=== PATIENT | female | born 1985 | race Caucasian/White ===

== ENCOUNTER 2024-06-30 23:37 | Emergency (ER) | payer SELFPAY ==
[2024-07-01 00:14] LABS: BASOPHILS ABSOLUTE AUTO 0.08 K/uL (0.00-0.20); BASOPHILS PERCENT AUTO 0.7 % (0.0-1.0); EOSINOPHILS ABSOLUTE AUTO 0.21 K/uL (0.00-0.45); EOSINOPHILS PERCENT AUTO 1.9 % (0.0-6.0); HEMATOCRIT 47.7 % (37.0-47.0); HEMOGLOBIN 15.9 g/dL (12.0-16.0); IMMATURE GRAN ABSOLUTE AUTO 0.03 K/uL (0.00-0.05); IMMATURE GRAN PERCENT AUTO 0.3 % (0.0-0.4); LYMPHOCYTES ABSOLUTE AUTO 3.71 K/uL (1.00-4.80); LYMPHOCYTES PERCENT AUTO 34.4 % (24.0-44.0); MEAN CORPUSCULAR HEMOGLOBIN 28.4 pg (28.0-32.0); MEAN CORPUSCULAR HGB CONC 33.3 g/dL (32.0-36.0); MEAN CORPUSCULAR VOLUME 85.3 fL (83.0-99.0); MEAN PLATELET VOLUME 10.3 fL (9.4-12.3); MONOCYTES ABSOLUTE AUTO 0.71 K/uL (0.00-0.80); MONOCYTES PERCENT AUTO 6.6 % (0.0-8.0); NEUTROPHILS ABSOLUTE AUTO 6.04 K/uL (1.80-7.70); NEUTROPHILS PERCENT AUTO 56.1 % (41.0-71.0); PLATELET COUNT,PLT 225 K/uL (150-400); RED BLOOD CELL COUNT 5.59 M/uL (4.10-5.30); WHITE BLOOD CELL COUNT,WBC 10.78 K/uL (3.9-11.3)
[2024-07-01 00:28] LABS: APPEARANCE,URINE CLEAR; BILIRUBIN,URINE NEGATIVE (NEGATIVE); COLOR,URINE YELLOW; GLUCOSE,URINE NEGATIVE (NEGATIVE); KETONES,URINE NEGATIVE (NEGATIVE); LEUKOCYTE ESTERASE,URINE NEGATIVE (NEGATIVE); NITRITE,URINE NEGATIVE (NEGATIVE); OCCULT BLOOD,URINE MODERATE (NEGATIVE); PROTEIN,URINE NEGATIVE (NEGATIVE); UROBILINOGEN,URINE 0.2 EU/dL (<2.0)
[2024-07-01 00:38] LABS: BACTERIA,URINE FEW (NEGATIVE); EPITHELIAL CELLS,URINE MODERATE (NONE-FEW); RBC,URINE 0-1 (0-2/HPF); WBC,URINE 0-2 (0-5/HPF)
[2024-07-01 01:33] LABS: A/G RATIO 1.1 (0.9-1.6); BILIRUBIN TOTAL 0.4 mg/dL (0.2-1.0); CALCIUM 9.2 mg/dL (8.5-10.1); CARBON DIOXIDE,CO2 26.3 mmol/L (21.0-32.0); CREATININE 0.6 mg/dL (0.6-1.0); EST CRCL DRUG DOSING (CG) 108.7 mL/min; POTASSIUM,K 4.2 mmol/L (3.5-5.1); PROTEIN TOTAL,TP 7.6 g/dL (6.4-8.2)
== END 2024-07-01 01:13 | disposition home or self-care (01) ==
LOC: MW.ED 23:37
DX: O20.9 Hemorrhage in early pregnancy, unspecified (principal); O99.331 Smoking (tobacco) complicating pregnancy, first trimester; F17.210 Nicotine dependence, cigarettes, uncomplicated; Z79.899 Other long term (current) drug therapy; Z3A.08 8 weeks gestation of pregnancy; Z75.8 Other problems related to medical facilities and other health care
CPT/HCPCS: 36415; 76801; 76801-26; 80053; 81001; 84702; 85025; 86900; 86901; 99284

== ENCOUNTER 2024-07-01 14:32 | Emergency (ER) | payer SELFPAY ==
[2024-07-01 15:02] LABS: BASOPHILS ABSOLUTE AUTO 0.05 K/uL (0.00-0.20); BASOPHILS PERCENT AUTO 0.6 % (0.0-1.0); EOSINOPHILS ABSOLUTE AUTO 0.16 K/uL (0.00-0.45); EOSINOPHILS PERCENT AUTO 1.9 % (0.0-6.0); HEMATOCRIT 45.5 % (37.0-47.0); HEMOGLOBIN 15.3 g/dL (12.0-16.0); IMMATURE GRAN ABSOLUTE AUTO 0.03 K/uL (0.00-0.05); IMMATURE GRAN PERCENT AUTO 0.4 % (0.0-0.4); LYMPHOCYTES ABSOLUTE AUTO 2.63 K/uL (1.00-4.80); LYMPHOCYTES PERCENT AUTO 31.6 % (24.0-44.0); MEAN CORPUSCULAR HEMOGLOBIN 28.6 pg (28.0-32.0); MEAN CORPUSCULAR HGB CONC 33.6 g/dL (32.0-36.0); MEAN PLATELET VOLUME 10.1 fL (9.4-12.3); MONOCYTES ABSOLUTE AUTO 0.49 K/uL (0.00-0.80); MONOCYTES PERCENT AUTO 5.9 % (0.0-8.0); NEUTROPHILS ABSOLUTE AUTO 4.96 K/uL (1.80-7.70); NEUTROPHILS PERCENT AUTO 59.6 % (41.0-71.0); PLATELET COUNT,PLT 226 K/uL (150-400); RED BLOOD CELL COUNT 5.35 M/uL (4.10-5.30); WHITE BLOOD CELL COUNT,WBC 8.32 K/uL (3.9-11.3)
== END 2024-07-01 16:11 | disposition home or self-care (01) ==
LOC: MW.ED 14:32
DX: O03.9 Complete or unspecified spontaneous abortion without complication (principal); Z75.8 Other problems related to medical facilities and other health care
CPT/HCPCS: 36415; 84702; 85025; 99284

== ENCOUNTER 2024-07-02 22:33 | Emergency (ER) | payer SELFPAY ==
[2024-07-02] MEDS ORDERED: Sodium Chloride 0.9% 10 ML Syringe FLUSH PRN (22:49)
[2024-07-02 23:02] LABS: HEMATOCRIT 44.8 % (37.0-47.0); HEMOGLOBIN 15.2 g/dL (12.0-16.0); MEAN CORPUSCULAR HEMOGLOBIN 28.3 pg (28.0-32.0); MEAN CORPUSCULAR HGB CONC 33.9 g/dL (32.0-36.0); MEAN CORPUSCULAR VOLUME 83.4 fL (83.0-99.0); MEAN PLATELET VOLUME 10.1 fL (9.4-12.3); PLATELET COUNT,PLT 266 K/uL (150-400); RED BLOOD CELL COUNT 5.37 M/uL (4.10-5.30); WHITE BLOOD CELL COUNT,WBC 15.89 K/uL (3.9-11.3)
[2024-07-02] MEDS: Ondansetron 4 MG/2 ML SDV IVPUSH ONE (23:03)
[2024-07-02] MEDS: Morphine 4 MG/ML Syringe IVPUSH ONE (23:05)
[2024-07-02 23:06] LABS: EOSINOPHILS ABSOLUTE MAN 0.16 K/uL (0.00-0.45); EOSINOPHILS PERCENT MAN 1 % (0-6); LYMPHOCYTES ABSOLUTE MAN 5.88 K/uL (1.00-4.80); LYMPHOCYTES PERCENT MAN 37 % (24-44); MONOCYTES ABSOLUTE MAN 1.11 K/uL (0.00-0.80); MONOCYTES PERCENT MAN 7 % (0-8); SEG NEUTROPHILS ABSOLUTE MAN 8.74 K/uL (1.80-7.70); SEG NEUTROPHILS PERCENT MAN 55 % (41-71)
[2024-07-02] MEDS: Morphine 2 MG/ML SYRINGE IVPUSH ONE (23:06)
[2024-07-02] MEDS: Sodium Chloride 0.9% 1,000 ML IV ONE (23:25)
[2024-07-02 23:49] LABS: A/G RATIO 1.2 (0.9-1.6); ALBUMIN 3.9 g/dL (3.4-5.0); BILIRUBIN TOTAL 0.5 mg/dL (0.2-1.0); CALCIUM 9.3 mg/dL (8.5-10.1); CARBON DIOXIDE,CO2 26.4 mmol/L (21.0-32.0); CREATININE 0.8 mg/dL (0.6-1.0); EST CRCL DRUG DOSING (CG) 88.87 mL/min; POTASSIUM,K 3.3 mmol/L (3.5-5.1); PROTEIN TOTAL,TP 7.1 g/dL (6.4-8.2)
[2024-07-03] MEDS: Acetaminophen 500 MG Tab PO ONE (00:43)
[2024-07-03] MEDS: Ketorolac 30 MG/ML SDV IVPUSH ONE (00:43)
== END 2024-07-03 01:00 | disposition home or self-care (01) ==
LOC: MW.ED 22:33
DX: O03.9 Complete or unspecified spontaneous abortion without complication (principal); I95.9 Hypotension, unspecified; R42 Dizziness and giddiness
CPT/HCPCS: 36415; 76817; 80053; 83880; 84702; 85025; 86850; 86900; 86901; 96361; 96374; 96375; 99284; A9270; J1885; J2270; J2405; J7030